=== PATIENT | female | born 1985 | race Caucasian/White ===

== ENCOUNTER 2021-03-07 12:20 | Emergency (ER) | payer MEDICAID, OTHER ==
[2021-03-07 12:53] VITALS: BP 127/97
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
== END 2021-03-07 13:23 | disposition home or self-care (01) ==
LOC: ED 12:20
DX: T22.211A Burn of second degree of right forearm, initial encounter (principal); T21.21XA Burn of second degree of chest wall, initial encounter; Z79.1 Long term (current) use of non-steroidal anti-inflammatories (NSAID); Z79.899 Other long term (current) drug therapy; X12.XXXA Contact with other hot fluids, initial encounter; Y93.89 Activity, other specified; Y92.89 Other specified places as the place of occurrence of the external cause; Y99.8 Other external cause status
CPT/HCPCS: 99282